=== PATIENT | male | born 1965 | race Native Hawaiian/Other Pacific Islander ===

== ENCOUNTER 2022-04-02 01:00 | Emergency (ER) | payer OTHER, SELFPAY ==
--- NOTE | 2022-04-02 01:11 | ED_ITS ---
HPI - General Adult General Chief complaint: Upper Respiratory Symptoms Stated complaint: diabetic coughing, nausa Time Seen by Provider: 04/02/22 01:02 History of Present Illness HPI narrative: 56-year-old male nonsmoker with history of diabetes presents with multiple family members and a chief complaint of subjective fever, dry hacking cough and generalized malaise. Multiple family members have similar symptoms. 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 He feels weak and fatigued but denies any specific pain. His cough is dry and hacking and he denies any sputum. Related Data Previous Rx's Medication Instructions Recorded oseltamivir 75 mg capsule (Tamiflu) 75 mg PO BID 5 days #10 caps 04/02/22 Review of Systems Review of Systems Narrative: GENERAL: See HPI HEENT: See HPI RESPIRATORY: See HPI CARDIOVASCULAR: Denies chest pain, palpitations, orthopnea, edema, GASTROINTESTINAL: Denies nausea, vomiting, abdominal pain, diarrhea, constipati on, melena. : Denies dysuria, frequency, incontinence, hematuria, urinary retention. MUSCULOSKELETAL: denies weakness, joint pain, or bony pain SKIN: Denies rash, skin lesions, or other NEUROLOGIC: Denies weakness, headache, numbness, change in speech, confusion, seizures, incoordination. PSYCHIATRIC: No concerning psychosocial issues. 12 point review of systems is negative except for those stated above Patient History Social History Smoking Status: Never smoker Exam Narrative Exam Narrative: GENERAL: [56] year old patient appears stated age. Well-developed patient, in mild distress. HEAD: Atraumatic. Normocephalic. EYES: Pupils equal round and reactive. Extraocular motions intact. No scleral icterus. No injection or drainage. ENT: Nose without bleeding, purulent drainage. Throat without erythema, tonsillar hypertrophy or exudate. Airway patent. NECK: Trachea midline. Non tender CARDIOVASCULAR: Regular rate and rhythm without murmurs, gallops, or rubs. RESPIRATORY: Clear to auscultation. Breath sounds equal bilaterally. No wheezes, rales, or rhonchi. GASTROINTESTINAL: Abdomen soft, non-tender, nondistended. EXTREMITIES: No edema or joint tenderness. BACK: Nontender without deformity or crepitance. No flank tenderness. NEURO: AOx3. SKIN: No rash or erythema of visible areas Initial Vital Signs Initial Vital Signs: Vital Signs Temperature 97.6 F 04/02/22 01:16 Pulse Rate 74 04/02/22 01:16 Respiratory Rate 16 04/02/22 01:16 Blood Pressure 134/79 04/02/22 01:16 Pulse Oximetry 100 04/02/22 01:16 Oxygen Delivery Method 04/02/22 01:16 Course Orders Ordered: Discontinued Medications Lactated Ringer's (Lactated Ringers) 1,000 mls @ 1,000 mls/hr IV BOLUS ONE Stop: 04/02/22 02:17 Last Infusion: 04/02/22 02:32 Dose: 0 mls/hr Documented By: Admin: 04/02/22 01:36 Dose: 1,000 mls/hr Documented By: NOE Vital Signs Vital signs: Vital Signs - 8 hr 04/02/22 01:16 Temperature 97.6 F Pulse Rate 74 Respiratory Rate 16 Blood Pressure 134/79 Pulse Oximetry 100 Oxygen Delivery Method Room Air Medical Decision Making Lab Data Result diagrams: 04/02/22 01:28 04/02/22 01:28 Labs: Lab Results 04/02/22 04/02/22 04/02/22 Range/Units 01:14 01:28 01:28 WBC 4.0 L (4.5-11.0) X10^3/uL RBC 4.84 (4.5-5.9) X10^6/uL Hgb 14.3 (13.5-17.5) g/dL Hct 42.5 (41-53) % MCV 87.7 (80-100) fL MCH 29.5 (26-34) PG MCHC 33.6 (30-36) % RDW 13.9 (11.6-14.8) % Plt Count 217 (150-400) X10^3/uL Neut % (Auto) 60.6 (50-75) % Lymph % (Auto) 23.9 L (25-40) % Dawson % (Auto) 13.2 (3-14) % Eos % (Auto) 1.4 L (2-4) % Baso % (Auto) 0.9 (0-2) % Neut # (Auto) 2400 (8432-9311) /uL Lymph # (Auto) 1000 L (9313-8053) /uL Dawson # (Auto) 500 (0-900) /uL Eos # (Auto) 100 (0-450) /uL Baso # (Auto) 0 (0-100) /uL Sodium 134 L (137-145) mmol/L Potassium 4.3 (3.4-5.1) mmol/L Chloride 98 (98-107) mmol/L Carbon Dioxide 23 (22-32) mmol/L BUN 20 (9-20) mg/dL Creatinine 0.74 (0.66-1.25) mg/dL Estimated GFR > 60 (>60) mL/min BUN/Creatinine Ratio 27.0 H (6-22) Glucose 383 H (70-100) mg/dL Calcium 8.5 (8.4-10.2) mg/dL Total Bilirubin 0.6 (0.2-1.3) mg/dL AST 23 (17-59) IU/L ALT 24 (<50) IU/L Alkaline Phosphatase 62 (38-126) U/L Total Protein 7.2 (6.3-8.2) g/dL Albumin 4.1 (3.5-5.0) g/dL Globulin 3.1 (1.7-4.1) g/dL Albumin/Globulin Ratio 1.3 (1.0-2.8) Ketones 0.17 (<0.27) mmol/L SARS-CoV-2 (PCR) Negative (Negative) Influenza A (RT-PCR) Flu a positive H (NEGATIVE) Influenza B (RT-PCR) Flu b negative (NEGATIVE) RSV (PCR) Negative (Negative) Point of Care Testing Glucose POC 318 Urine Dip Bedside Urine Glucose 500 mg/dl Bedside Urine Bilirubin - Negative Bedside Urine Ketone - Negative Bedside Urine Occult Blood - Negative Bedside Urine Protein - Negative Bedside Urine Urobilinogen - Negative Bedside Urine Nitrite - Negative Bedside Urine Leukocytes - Negative Esterase Point of care testing: Point of Care Testing Glucose POC 318 Urine Dip Bedside Urine Glucose 500 mg/dl Bedside Urine Bilirubin - Negative Bedside Urine Ketone - Negative Bedside Urine Occult Blood - Negative Bedside Urine Protein - Negative Bedside Urine Urobilinogen - Negative Bedside Urine Nitrite - Negative Bedside Urine Leukocytes - Negative Esterase [facility] Narrative Medical decision making narrative: Patient has a reassuring history and physical exam, initially his blood sugar is in the 400s but improves to the 300s with fluids. At no point dizzy demonstrate any significant respiratory distress as there is no hypoxemia, use of accessory muscles etc.. He has reassuring labs otherwise, tolerates oral hydration without difficulty. Return precautions discussed and questions have been answered to his apparent satisfaction Discharge Plan Departure Patient Disposition: Home Clinical Impression: Influenza Instructions: DI for Influenza -- Adult Activity Restrictions/Additional Instructions: *You have been diagnosed with [influenza A] *What to do: *Please continue to take your regular medications as directed. [ ] New medication prescriptions sent to your pharmacy: [ ] [x ] New medication written as a paper prescription [ ] No new medications given *Please follow up with your primary care provider in 2-3 days, call for an appointment. Let them know you were seen in the Emergency Department and that we ask that you be seen in follow up. We will electronically transmit a record of today's note if your PCP is in our system *Return to Emergency Department if you should have any new, worsening or concerning symptoms, such as [fever greater than 101 F, shaking chills, worsening pain, persistent vomiting or other bothersome symptoms] Prescriptions: New oseltamivir [Tamiflu] 75 mg capsule 75 mg PO BID 5 Days Qty: 10 0RF Visit Report Forms: Patient Portal/API
[2022-04-02 01:16] VITALS: BP 134/79; PULSE 74; RESP 16; TEMP 36.4; O2SAT 100
[2022-04-02 01:36] LABS: Add Manual Diff / Slide Review NO; Basophils Absolute Auto 0 /uL (0-100); Basophils Percent Auto 0.9 % (0-2); Eosinophils Absolute Auto 100 /uL (0-450); Eosinophils Percent Auto 1.4 % (2-4); Hematocrit 42.5 % (41-53); Hemoglobin 14.3 g/dL (13.5-17.5); Lymphocytes Absolute Auto 1000 /uL (1100-4500); Lymphocytes Percent Auto 23.9 % (25-40); Mean Corpuscular HGB Conc 33.6 % (30-36); Mean Corpuscular Hemoglobin 29.5 PG (26-34); Mean Corpuscular Volume 87.7 fL (80-100); Monocytes Absolute Auto 500 /uL (0-900); Monocytes Percent Auto 13.2 % (3-14); Neutrophils Absolute Auto 2400 /uL (1500-7000); Neutrophils Percent Auto 60.6 % (50-75); Platelet Count 217 X10^3/uL (150-400); Red Blood Cell Count 4.84 X10^6/uL (4.5-5.9); Red Cell Distribution Width 13.9 % (11.6-14.8)
[2022-04-02] MEDS: LACTATED RINGERS 1,000 ML 1000 ML IV (01:36)
[2022-04-02 01:47] LABS: Alanine Aminotransferase 24 IU/L (<50); Albumin 4.1 g/dL (3.5-5.0); Albumin Globulin Ratio 1.3 (1.0-2.8); Alkaline Phosphatase 62 U/L (38-126); Aspartate Aminotransferase 23 IU/L (17-59); Bilirubin Total 0.6 mg/dL (0.2-1.3); Blood Urea Nitrogen 20 mg/dL (9-20); Calcium 8.5 mg/dL (8.4-10.2); Carbon Dioxide 23 mmol/L (22-32); Chloride 98 mmol/L (98-107); Estimated Glomerular Filt Rate > 60 mL/min (>60); Globulin 3.1 g/dL (1.7-4.1); Glucose 383 mg/dL (70-100); HEMOLYSIS 43 (0-50); Potassium 4.3 mmol/L (3.4-5.1); Sodium 134 mmol/L (137-145); Total Protein 7.2 g/dL (6.3-8.2)
[2022-04-02 01:49] LABS: Ketones (Beta-Hydroxybutyrate) 0.17 mmol/L (<0.27)
[2022-04-02 01:52] VITALS: PULSE 76; RESP 14; O2SAT 99
[2022-04-02 02:03] LABS: Influenza A - CEPHEID Flu A POSITIVE (NEGATIVE); Influenza B - CEPHEID Flu B NEGATIVE (NEGATIVE); Respiratory Syncytial Virus Negative (Negative)
[2022-04-02 02:09] LABS: COVID-19 CEPHEID 4-PLEX PCR Negative (Negative)
[2022-04-02 03:00] VITALS: BP 132/84; PULSE 78; RESP 14; O2SAT 98
== END 2022-04-02 03:01 | disposition home or self-care (01) ==
PROVIDERS: Emergency Provider Emergency Medicine
DX: J10.1 Influenza due to other identified influenza virus with other respiratory manifestations (principal); Z20.822 Contact with and (suspected) exposure to COVID-19
CPT/HCPCS: 0241U; 36415; 80053; 81003; 82009; 82962; 85025; 96360; 99284

== ENCOUNTER 2023-03-18 12:12 | Emergency (ER) | payer OTHER, SELFPAY ==
[2023-03-18] VITALS (8 sets, daily range): BP systolic 113–130; BP diastolic 72–82; PULSE 63–75; RESP 15–26; TEMP 37.1; O2SAT 95–98; BMI 30.5
--- NOTE | 2023-03-18 | DI.MG.S_ITS ---
MALE BILATERAL DIGITAL DIAGNOSTIC MAMMOGRAM 3D/2D: 03/18/2023 CLINICAL: Palpable right breast lump. No prior exams were available for comparison. There is a focal asymmetry in the right breast central to the nipple in the retroareolar region. This correlates as palpated and with nipple discharge. No other significant masses, calcifications, or other findings are seen in either breast. IMPRESSION: INCOMPLETE: NEEDS ADDITIONAL IMAGING EVALUATION The focal asymmetry in the right breast is indeterminate. An ultrasound is recommended. This exam was interpreted at Station ID: [id number]. NOTE: For mammograms, a report in lay terms will be sent to the patient. Approximately 15% of breast malignancies will not be visualized mammographically. In the management of a palpable breast mass, a negative mammogram must not discourage biopsy of a clinically suspicious lesion. Electronically Signed By: Genaro Stevens M.D. lc/:03/18/2023 15:34:41 ACR BI-RADS Category 0: Incomplete [id number]
--- NOTE | 2023-03-18 12:26 | DI.RAD.S_ITS ---
PROCEDURE: XR CHEST 1V INDICATIONS: chest pain TECHNIQUE: One view of the chest was acquired. COMPARISON: None. FINDINGS: Surgical changes and devices: None. Lungs and pleura: Lungs are clear. No pleural effusions or pneumothorax. Mediastinum: Mediastinal contours appear normal. Heart size is normal. Bones and chest wall: No suspicious bony lesions. Overlying soft tissues appear unremarkable. IMPRESSION: Portable chest within normal limits for age. Approved by: Barney Montes M.D. on 03/18/2023 at 12:55
--- NOTE | 2023-03-18 12:35 | PC.NURSE ---
patient appears well, not diaphoretic. Pt states he was concerned about his chest pain and didnt want to miss anything heart related.
[2023-03-18 12:48] LABS: Add Manual Diff / Slide Review NO; Basophils Absolute Auto 0 /uL (0-100); Basophils Percent Auto 0.8 % (0-2); Eosinophils Absolute Auto 100 /uL (0-450); Eosinophils Percent Auto 2.2 % (2-4); Hematocrit 43.7 % (41-53); Hemoglobin 14.7 g/dL (13.5-17.5); Lymphocytes Absolute Auto 1500 /uL (1100-4500); Lymphocytes Percent Auto 31.9 % (25-40); Mean Corpuscular HGB Conc 33.6 % (30-36); Mean Corpuscular Hemoglobin 28.9 PG (26-34); Mean Corpuscular Volume 86.1 fL (80-100); Monocytes Absolute Auto 400 /uL (0-900); Monocytes Percent Auto 8.3 % (3-14); Neutrophils Absolute Auto 2600 /uL (1500-7000); Neutrophils Percent Auto 56.8 % (50-75); Platelet Count 245 X10^3/uL (150-400); Red Blood Cell Count 5.08 X10^6/uL (4.5-5.9); Red Cell Distribution Width 14.3 % (11.6-14.8); White Blood Cell Count 4.6 X10^3/uL (4.5-11.0)
[2023-03-18 12:50] LABS: INR 0.9 (0.9-1.3); Prothrombin Time 10.3 SECONDS (10.1-12.7)
[2023-03-18 12:53] LABS: PTT Partial Thromboplastin Tim 35 SECONDS (26-36)
[2023-03-18 12:59] LABS: Alanine Aminotransferase 23 IU/L (<50); Albumin 4.3 g/dL (3.5-5.0); Albumin Globulin Ratio 1.5 (1.0-2.8); Alkaline Phosphatase 53 U/L (38-126); Aspartate Aminotransferase 24 IU/L (17-59); BUN Creatinine Ratio 25.8 (6-22); Bilirubin Total 0.8 mg/dL (0.2-1.3); Blood Urea Nitrogen 16 mg/dL (9-20); Carbon Dioxide 25 mmol/L (22-32); Chloride 103 mmol/L (98-107); Creatine Kinase 281 U/L (55-170); Estimated Glomerular Filt Rate > 60 mL/min (>60); Globulin 2.9 g/dL (1.7-4.1); Glucose 156 mg/dL (70-100); HEMOLYSIS < 15 (0-50); Lipase 165 U/L (23-300); Potassium 3.7 mmol/L (3.4-5.1); Sodium 137 mmol/L (137-145); Total Protein 7.2 g/dL (6.3-8.2)
[2023-03-18 13:10] LABS: Troponin I < 0.012 ng/mL (0.01-0.034)
--- NOTE | 2023-03-18 13:21 | DI.US.S_ITS ---
PROCEDURE: US BREAST RT LIMITED COMPARISON: None. INDICATIONS: MASS UNDER R NIPPLE, POSS ABSCESS? FINDINGS: IMPRESSION: Dictated by: Genaro Stevens M.D. on 03/18/2023 at 15:35 Approved by: Genaro Stevens M.D. on 03/18/2023 at 15:38
--- NOTE | 2023-03-18 13:29 | DI.US.S_ITS ---
Patient Name: COLTON RITCHIE date: 1965 Sex: M Attending Physician: French Indications: Date: 03/18/2023 15:37 At the request of: NATASHA JOHNSON Procedure: US breast RT limited ULTRASOUND OF RIGHT BREAST: 03/18/2023 CLINICAL: Palpable right breast lump by physician. No prior exams were available for comparison. Color flow and real-time ultrasound of the right breast were performed. Gilliland scale images of the realtime examination were reviewed. There is a 2.6 cm x 1.8 cm x 0.8 cm irregular solid mass vs complex cystic solid mass vs. abscess in the right breast central to the nipple in the retroareolar region. IMPRESSION: SUSPICIOUS OF MALIGNANCY The 2.6 cm x 1.8 cm x 0.8 cm irregular solid mass vs complex cystic solid mass vs. abscess in the right breast is suspicious of malignancy. An ultrasound guided biopsy is recommended. This correlates as palpated and with the nipple discharge. Patient has been on antibiotics. If this has resolved on the day of tissue sampling, this could be a collapsing abscess. This exam was interpreted at Station ID: [id number]. Electronically Signed By: Genaro Stevens M.D. lc/:03/18/2023 15:37:56 letter sent: Biopsy Required Ultrasound BI-RADS: 4 Suspicious for malignancy
--- NOTE | 2023-03-18 13:58 | ED_ITS ---
HPI - Chest Pain General Chief Complaint: Chest Pain Stated Complaint: chest pain/told to be checked for breast cancer Time Seen by Provider: 03/18/23 12:32 Source: patient Mode of arrival: Ambulatory Limitations: no limitations History of Present Illness HPI narrative: Patient presents by private vehicle from home for several complaints. Patient reports a mass in his right chest underneath his nipple. Also complains of right-sided chest pain 1 week ago, also complains of occasional shooting pain down his R leg to his R little toe. 2 weeks ago patient was treated for a cyst draining fluid from his R nipple. He completed a course of keflex, and the drainage stopped, but there is now a firm mass under his nipple. Related Data Previous Rx's Medication Instructions Recorded insulin glargine 100 unit/mL (3 30 unit (0.3 mL) SUBCUT QAM #15 mL 03/18/23 mL) subcutaneous pen (Lantus Solostar U-100 Insulin) Allergies Allergy/AdvReac Type Severity Reaction Status Date / Time aspirin Allergy Verified 03/18/23 12:39 Patient History Social History Smoking Status: Never smoker Smoking Status: Never smoker Substance Use Type: does not use Exam Initial Vital Signs Initial Vital Signs: Vital Signs Temperature 98.7 F 03/18/23 12:20 Pulse Rate 67 03/18/23 12:20 Respiratory Rate 15 03/18/23 12:20 Blood Pressure 127/79 03/18/23 12:20 Pulse Oximetry 97 03/18/23 12:20 Oxygen Delivery Method Room Air 03/18/23 12:20 Course Course Course Narrative: Multiple complaints, primary concern is chest pain and mass under right nipple. Masses firm, nonmobile, nontender. No nipple discharge currently. We will order ultrasound and reassess. Orders Ordered: ED Orders 03/18/23 12:26 XR chest 1V Stat EKG-12 Lead Stat 03/18/23 12:30 Complete Blood Count AUTO DIFF Stat Comprehensive Metabolic Panel Stat Lipase Stat Magnesium Stat PTT Partial Thromboplastin Curtis Stat Prothrombin Time INR Stat Troponin & CK Cardiac Panel Stat 03/18/23 13:21 US breast RT limited Stat Reevaluation(s) Reevaluation #1: Radiology requested mammogram due to concerning findings in the breast ultrasound. Patient was taken for mammogram. Reevaluation #2: Mammogram with concerning findings, Radiology recommended biopsy on outpatient basis. The radiologist discussed this with patient, at bedside and confirmed patient is understanding of the need for eventual biopsy. Patient requested refill of Lantus be sent to his pharmacy. He has an appointment with his primary care physician in 1 month but we will try to call his primary office to expedite this appointment. Vital Signs Vital signs: Vital Signs - 8 hr 03/18/23 12:20 03/18/23 12:38 03/18/23 13:00 Temperature 98.7 F Pulse Rate 67 70 65 Respiratory Rate 15 26 H 23 Blood Pressure 127/79 Pulse Oximetry 97 97 96 Oxygen Delivery Method Room Air Room Air 03/18/23 13:00 03/18/23 13:30 03/18/23 13:30 Temperature Pulse Rate 65 Respiratory Rate 24 Blood Pressure 113/72 126/80 Pulse Oximetry 97 Oxygen Delivery Method Room Air 03/18/23 14:00 03/18/23 14:00 03/18/23 14:30 Temperature Pulse Rate 63 65 Respiratory Rate 17 24 Blood Pressure 121/77 Pulse Oximetry 95 98 Oxygen Delivery Method Room Air 03/18/23 14:30 03/18/23 15:00 03/18/23 15:00 Temperature Pulse Rate 69 Respiratory Rate 20 Blood Pressure 130/82 126/77 Pulse Oximetry 96 Oxygen Delivery Method Room Air MDM - Chest Pain Differential Diagnosis Differential diagnosis: Likely fracture of rib and costochondritis Lab Data 03/18/23 12:30 03/18/23 12:30 Labs: Lab Results 03/18/23 Range/Units 12:30 WBC 4.6 (4.5-11.0) X10^3/uL RBC 5.08 (4.5-5.9) X10^6/uL Hgb 14.7 (13.5-17.5) g/dL Hct 43.7 (41-53) % MCV 86.1 (80-100) fL MCH 28.9 (26-34) PG MCHC 33.6 (30-36) % RDW 14.3 (11.6-14.8) % Plt Count 245 (150-400) X10^3/uL Neut % (Auto) 56.8 (50-75) % Lymph % (Auto) 31.9 (25-40) % Pennington % (Auto) 8.3 (3-14) % Eos % (Auto) 2.2 (2-4) % Baso % (Auto) 0.8 (0-2) % Neut # (Auto) 2600 (7621-9993) /uL Lymph # (Auto) 1500 (5579-5935) /uL Pennington # (Auto) 400 (0-900) /uL Eos # (Auto) 100 (0-450) /uL Baso # (Auto) 0 (0-100) /uL PT 10.3 (10.1-12.7) SECONDS INR 0.9 (0.9-1.3) APTT 35 (26-36) SECONDS Sodium 137 (137-145) mmol/L Potassium 3.7 (3.4-5.1) mmol/L Chloride 103 (98-107) mmol/L Carbon Dioxide 25 (22-32) mmol/L BUN 16 (9-20) mg/dL Creatinine 0.62 L (0.66-1.25) mg/dL Estimated GFR > 60 (>60) mL/min BUN/Creatinine Ratio 25.8 H (6-22) Glucose 156 H (70-100) mg/dL Calcium 9.0 (8.4-10.2) mg/dL Magnesium 2.0 (1.6-2.3) mg/dL Total Bilirubin 0.8 (0.2-1.3) mg/dL AST 24 (17-59) IU/L ALT 23 (<50) IU/L Alkaline Phosphatase 53 (38-126) U/L Total Creatine Kinase 281 H (55-170) U/L Troponin I < 0.012 (0.01-0.034) ng/mL Total Protein 7.2 (6.3-8.2) g/dL Albumin 4.3 (3.5-5.0) g/dL Globulin 2.9 (1.7-4.1) g/dL Albumin/Globulin Ratio 1.5 (1.0-2.8) Lipase 165 (23-300) U/L Discharge Plan Departure Patient Disposition: Home Clinical Impression: Breast lump or mass Qualifiers: Laterality: right Breast mass location: subareolar Qualified Code(s): N63.41 - Unspecified lump in right breast, subareolar Instructions: DI for Breast Mass -- Uncertain Cause Activity Restrictions/Additional Instructions: IT IS EXTREMELY IMPORTANT THAT YOU FOLLOW UP TO GET A BIOPSY OF YOUR MASS. Prescriptions: New insulin glargine [Lantus Solostar U-100 Insulin] 100 unit/mL (3 mL) insulin pen 30 unit SUBCUT QAM Qty: 15 0RF Stand Alone Forms: Patient Portal/API
== END 2023-03-18 15:56 | disposition home or self-care (01) ==
PROVIDERS: Emergency Provider Emergency Medicine
DX: N63.41 Unspecified lump in right breast, subareolar (principal); R07.9 Chest pain, unspecified
CPT/HCPCS: 36415; 71045; 76642; 77066; 80053; 82550; 83690; 83735; 84484; 85025; 85610; 85730; 93005; 99284; G0279

== ENCOUNTER → 2023-04-05 08:39 | Outpatient (CLI) | payer OTHER, SELFPAY ==
--- NOTE | 2023-04-05 08:41 | DI.US.S_ITS ---
ULTRASOUND OF RIGHT BREAST: 04/05/2023 CLINICAL: RIGHT BREAST LUMP RETROAREOLAR CENTRAL TO NIPPLE BIOPSY CONSULT. Comparison is made to exams dated: 03/18/2023 mammogram and 03/18/2023 ultrasound - [facility]. Real-time ultrasound of the right breast was performed on the area of interest. There is fibroglandular tissue in the right breast central to the nipple anterior depth, consistent with gynecomastia. There is no mass seen on today's scan. IMPRESSION: BENIGN 1. There is no sonographic evidence of malignancy. 2. Gynecomastia. Recommend clinical follow up. Note: I reviewed the result with the patient and advised the patient that if there is increasing pain or enlargement of the palpable abnormality, he should notify his doctor and a repeat ultrasound can be obtained. This exam was interpreted at Station ID: [id number]. Electronically Signed By: Yue Power M.D. fx/:04/06/2023 12:17:27 Entry: - 04/06/2023 12:17:27 letter sent: Clinical Evaluation Ultrasound BI-RADS: 2 Benign
== END ==
PROVIDERS: Referring Provider Nurse Practitioner Family; Visit Provider Nurse Practitioner Family
DX: N63.41 Unspecified lump in right breast, subareolar (principal); N62 Hypertrophy of breast
CPT/HCPCS: 76642

== ENCOUNTER 2023-04-05 09:23 | Emergency (ER) | payer OTHER, SELFPAY ==
[2023-04-05 09:25] VITALS: BP 135/71; PULSE 81; RESP 14; TEMP 37.1; O2SAT 96; BMI 29.7
--- NOTE | 2023-04-05 09:34 | ED.EAR ---
HPI - Ear Problem General Chief complaint: Ear Stated complaint: numbnes on rt ear, hearing loss Time Seen by Provider: 04/05/23 09:24 Source: patient Mode of arrival: Ambulatory History of Present Illness HPI Narrative: Patient presents with right ear ringing. Woke up this morning with the sensation of fullness, he attempted to get ear wax out but nothing was extracted. He is concerned he has a blockage of ear wax. Related Data Previous Rx's Medication Instructions Recorded insulin glargine 100 unit/mL (3 30 unit (0.3 mL) SUBCUT QAM #15 mL 03/18/23 mL) subcutaneous pen (Lantus Solostar U-100 Insulin) Allergies Allergy/AdvReac Type Severity Reaction Status Date / Time aspirin Allergy Verified 04/05/23 09:29 Review of Systems Review of Systems Narrative: Negative except as noted above Patient History Social History Smoking Status: Never smoker Smoking Status: Never smoker alcohol intake frequency: holidays/special occasions only Substance Use Type: does not use Exam Initial Vital Signs Initial Vital Signs: Vital Signs Temperature 98.8 F 04/05/23 09:25 Pulse Rate 81 04/05/23 09:25 Respiratory Rate 14 04/05/23 09:25 Blood Pressure 135/71 04/05/23 09:25 Pulse Oximetry 96 04/05/23 09:25 Oxygen Delivery Method Room Air 04/05/23 09:25 Const: Awake, alert, no acute distress, nontoxic appearing Eyes: PERRL, EOMI, conjunctiva normal ENT: Cerumen impaction right ear canal, dentition normal, mucous membranes moist Neuro: AO x3, CN II-XII grossly intact, moves all extremities Psych: affect normal, mood normal, not suicidal, not homicidal Course Orders Ordered: Discontinued Medications Docusate Sodium (Docusate 100 Mg Capsule) 100 mg PO NOW ONE Stop: 04/05/23 10:00 Last Admin: 04/05/23 10:11 Dose: Not Given Documented By: KF Vital Signs Vital signs: Vital Signs - 8 hr 04/05/23 09:25 Temperature 98.8 F Pulse Rate 81 Respiratory Rate 14 Blood Pressure 135/71 Pulse Oximetry 96 Oxygen Delivery Method Room Air Medical Decision Making Differential Diagnosis Differential Diagnosis: Cerumen impaction, otitis media, otitis externa MDM Narrative Medical decision making narrative: Right ear cerumen impaction. Irrigated with normal saline by nursing staff, with removal of large amounts of wax. Patient reported resolution of his symptoms after the wax burden was removed. Tympanic membrane intact postprocedure. ED return precautions discussed at bedside. Patient expressed understanding of the plan and is in agreement at this time. All questions answered at the time of discharge. Discharge Plan Departure Patient Disposition: Home Clinical Impression: Impacted cerumen Qualifiers: Laterality: right Qualified Code(s): H61.21 - Impacted cerumen, right ear Instructions: Cerumen Impaction Prescriptions: No Action insulin glargine [Lantus Solostar U-100 Insulin] 100 unit/mL (3 mL) insulin pen 30 unit SUBCUT QAM Qty: 15 0RF Stand Alone Forms: Patient Portal/API
== END 2023-04-05 10:10 | disposition home or self-care (01) ==
PROVIDERS: Emergency Provider Emergency Medicine
DX: H61.21 Impacted cerumen, right ear (principal); N63.41 Unspecified lump in right breast, subareolar; N62 Hypertrophy of breast
CPT/HCPCS: 69209; 76642; 99281; 99283